=== PATIENT | male | born 1960 | race African-American/Black ===

== ENCOUNTER 2021-05-13 02:47 | Emergency (ER) | payer MEDICARE, MEDICAID ==
[~2021-05-13] VITALS: Ht 182.9 cm; Wt 68.2 kg
[2021-05-13 04:33] VITALS: BP 149/81
[2021-05-13] MEDS ORDERED: DOXYCYCLINE HYCLATE 100 MG TABLET PO ONE (04:45)
[2021-05-13] MEDS ORDERED: CEPHALEXIN MONOHYDRATE 500 MG CAPSULE PO ONE (04:45)
== END 2021-05-13 04:45 | disposition home or self-care (01) ==
LOC: EMS 02:51 → EDBD 02:51 → EMS 04:45
DX: L03.012 Cellulitis of left finger (principal)
CPT/HCPCS: 99283